=== PATIENT | male | born 1970 | race African-American/Black ===

== ENCOUNTER 2018-02-19 08:15 | Emergency (ER) | payer SELFPAY ==
--- NOTE | 2018-02-19 08:45 | ER ---
Nurse's Notes [facility] Name: Beltran Cabrera Age: 47 yrs Sex: Male : 1970 Arrival Date: 02/19/2018 Time: 08:18 Bed 14 Private MD: None, None Diagnosis: Epistaxis Presentation: 02/19 08:30 Presenting complaint: Patient states: nose bleed "every other month for months". ss Transition of care: patient was not received from another setting of care. Onset of symptoms is unknown. Risk Assessment: Do you want to hurt yourself or someone else? Patient reports no desire to harm self or others. Initial Sepsis Screen: Does the patient meet any 2 criteria? No. Patient's initial sepsis screen is negative. Does the patient have a suspected source of infection? No. Patient's initial sepsis screen is negative. Care prior to arrival: None. 08:30 Method Of Arrival: Ambulatory ss 08:30 Acuity: PAUL 5 ss Historical: - Allergies: 08:32 No Known Allergies; ss - Home Meds: 08:32 None [Active]; ss - PMHx: 08:32 None; ss - PSHx: 08:32 None; ss - Immunization history:: Adult Immunizations unknown. - Social history:: Smoking status: Patient uses tobacco products, smokes one pack cigarettes per day. - Ebola Screening: : Patient denies exposure to infectious person Patient denies travel to an Ebola-affected area in the 21 days before illness onset. Screenin:35 Abuse screen: Denies threats or abuse. Nutritional screening: No deficits noted. jb4 Tuberculosis screening: No symptoms or risk factors identified. Fall Risk None identified. Assessment: 08:35 General: Appears in no apparent distress. comfortable, Behavior is calm, cooperative, jb4 appropriate for age. Pain: Denies pain. Neuro: Level of Consciousness is awake, alert, obeys commands, Oriented to person, place, time, situation. Cardiovascular: Patient's skin is warm and dry. Respiratory: Airway is patent Respiratory effort is even, unlabored. GI: No signs and/or symptoms were reported involving the gastrointestinal system. : No signs and/or symptoms were reported regarding the genitourinary system. EENT: Nares are clear. Derm: No signs and/or symptoms reported regarding the dermatologic system. Musculoskeletal: No signs and/or symptoms reported regarding the musculoskeletal system. Vital Signs: 08:32 BP 111 / 85; Pulse 87; Resp 16; Temp 97.5(TE); Pulse Ox 100% on R/A; Weight 68.04 kg; ss Height 5 ft. 7 in. (170.18 cm); Pain 0/10; 08:32 Body Mass Index 23.49 (68.04 kg, 170.18 cm) ED Course: 08:18 Patient arrived in ED. sb2 08:19 None, None is Private Physician. sb2 08:27 Bhupinder Butler PA is PHCP. [facility] 08:27 Junior Moreland MD is Attending Physician. [facility] 08:31 Triage completed. ss 08:32 Arm band placed on left wrist. ss 08:35 Patient has correct armband on for positive identification. Bed in low position. Call jb4 light in reach. Side rails up X 1. 08:35 Pulse ox on. NIBP on. jb4 08:44 Bonita Edwards MD is Referral Physician. ps1 08:50 Brian Iraheta, RN is Primary Nurse. jb4 08:52 No provider procedures requiring assistance completed. Patient did not have IV access jb4 during this emergency room visit. Administered Medications: No medications were administered Outcome: 08:44 Discharge ordered by MD. ps1 08:52 Discharged to home ambulatory. jb4 08:52 Condition: stable 08:52 Discharge instructions given to patient, Instructed on discharge instructions, follow up and referral plans. medication usage, Demonstrated understanding of instructions, follow-up care, medications, Prescriptions given X 1. 08:55 Patient left the ED. jb4 Signatures: Bhupinder Butler PA PA [facility] Mayela Mercedes, BETHEL RN Brian Iraheta RN RN jb4 Junior Moreland MD MD ps1 Paula Sandoval sb2 Corrections: (The following items were deleted from the chart) 08:53 08:20 Abuse screen: Denies threats or abuse. jb4 jb4 08:53 08:20 Nutritional screening: No deficits noted. jb4 jb4 08:53 08:20 Tuberculosis screening: No symptoms or risk factors identified. jb4 jb4 08:53 08:20 Fall Risk None identified. jb4 jb4 08:54 08:20 General: Appears in no apparent distress. comfortable, Behavior is calm, jb4 cooperative, appropriate for age, jb4 08:20 Pain: Denies pain. jb4 4 08:20 Neuro: Level of Consciousness is awake, alert, obeys commands, Oriented to jb4 person, place, time, situation, jb4 08:20 Cardiovascular: Patient's skin is warm and dry. jb4 jb4 08:20 Respiratory: Airway is patent Respiratory effort is even, unlabored, jb4 4 08:20 GI: No signs and/or symptoms were reported involving the gastrointestinal system. jb4 4 08:20 : No signs and/or symptoms were reported regarding the gen[facility]ourinary system. [facility] 08[facility] EENT: Nares are clear jb4 4 08:20 Derm: No signs and/or symptoms reported regarding the dermatologic system. jb4 jb4 08:20 Musculoskeletal: No signs and/or symptoms reported regarding the musculoskeletal jb4 system. jb4
--- NOTE | 2018-02-19 08:45 | EDPHYS ---
Physician Documentation [facility] Name: Beltran Cabrera Age: 47 yrs Sex: Male : 1970 Arrival Date: 02/19/2018 Time: 08:18 Bed 14 Private MD: None, None ED Physician Junior Moreland HPI: 02/19 08:34 This 47 yrs old Black Male presents to ER via Ambulatory with complaints of Nose Bleed. ps1 08:39 patient has had intermittent nose bleeds, last one yesterday. He believes that it is ps1 2/2 work environment. as he works in a trav construction site. He requested a mask but was refused at work because he wasn't tested. Nonetheless, he had a spontaneous nosebleed from the left nare. Hemostasis achieved [employer]. No signs of recurrent bleeding. . Historical: - Allergies: 08:32 No Known Allergies; ss - Home Meds: 08:32 None [Active]; ss - PMHx: 08:32 None; ss - PSHx: 08:32 None; ss - Immunization history:: Adult Immunizations unknown. - Social history:: Smoking status: Patient uses tobacco products, smokes one pack cigarettes per day. - Ebola Screening: : Patient denies exposure to infectious person Patient denies travel to an Ebola-affected area in the 21 days before illness onset. ROS: 08:39 Constitutional: Negative for fever, chills, and weight loss, Eyes: Negative for injury, ps1 pain, redness, and discharge, Cardiovascular: Negative for chest pain, palpitations, and edema, Respiratory: Negative for shortness of breath, cough, wheezing, and pleuritic chest pain, Abdomen/GI: Negative for abdominal pain, nausea, vomiting, diarrhea, and constipation, MS/Extremity: Negative for injury and deformity, Skin: Negative for injury, rash, and discoloration. 08:39 ENT: Positive for nose bleed. Exam: 08:39 Constitutional: This is a well developed, well nourished patient who is awake, alert, ps1 and in no acute distress. Head/Face: Normocephalic, atraumatic. ENT: Nares patent. No nasal discharge, no septal abnormalities noted. Tympanic membranes are normal and external auditory canals are clear. Oropharynx with no redness, swelling, or masses, exudates, or evidence of obstruction, uvula midline. Mucous membranes moist. Cardiovascular: Regular rate and rhythm. No gallops, murmurs, or rubs. Normal PMI, no JVD. No pulse deficits. Respiratory: Lungs have equal breath sounds bilaterally, clear to auscultation and percussion. No rales, rhonchi or wheezes noted. No increased work of breathing, no retractions or nasal flaring. Abdomen/GI: Soft, non-tender, with normal bowel sounds. No distension or tympany. No guarding or rebound. No evidence of tenderness throughout. Vital Signs: 08:32 BP 111 / 85; Pulse 87; Resp 16; Temp 97.5(TE); Pulse Ox 100% on R/A; Weight 68.04 kg; ss Height 5 ft. 7 in. (170.18 cm); Pain 0/10; 08:32 Body Mass Index 23.49 (68.04 kg, 170.18 cm) ss MDM: 08:39 Data reviewed: vital signs, nurses notes. Counseling: I had a detailed discussion with ps1 the patient and/or guardian regarding: the historical points, exam findings, and any diagnostic results supporting the discharge/admit diagnosis, the need for outpatient follow up, an ENT specialist. ED course: Gave patient a mask for dust prevention. Encouraged antihistamine use. Avoid digital trauma. . 08:44 Patient medically screened. ps1 Administered Medications: No medications were administered Disposition: 02/19/18 08:44 Discharged to Home. Impression: Epistaxis. - Condition is Stable. - Discharge Instructions: Nosebleed, Adult. - Prescriptions for chlorpheniramine maleate 4 mg Oral Tablet - take 1 tablet by ORAL route every 6 hours As needed; 30 tablet. - Medication Reconciliation Form, Thank You Letter, Antibiotic Education, Prescription Opioid Use form. - Follow up: Bonita Edwards MD; When: As needed; Reason: Continuance of care. Follow up: Private Physician; When: As needed; Reason: Continuance of care, Re-evaluation by your physician. - Problem is new. - Symptoms are resolved. Signatures: Mayela Mercedes RN RN ss Brian Iraheta RN RN jb4 Junior Moreland MD MD ps1 Corrections: (The following items were deleted from the chart) 08:55 08:44 02/19/2018 08:44 Discharged to Home. Impression: Epistaxis. Condition is Stable. jb4 Forms are Medication Reconciliation Form, Thank You Letter, Antibiotic Education, Prescription Opioid Use. Follow up: Bonita Edwards; When: As needed; Reason: Continuance of care. Follow up: Private Physician; When: As needed; Reason: Continuance of care, Re-evaluation by your physician. Problem is new. Symptoms are resolved. ps1
== END 2018-02-19 08:55 | disposition home or self-care (01) ==
LOC: ER 08:15
DX: R04.0 Epistaxis (principal); F17.210 Nicotine dependence, cigarettes, uncomplicated
CPT/HCPCS: 99283